=== PATIENT | male | born 2000 | race Two or more races ===

== ENCOUNTER 2025-01-17 11:34 | Emergency (ER) | payer SELFPAY ==
[~2025-01-17] VITALS: Ht 160 cm; Wt 68.0 kg
[2025-01-17 15:33] VITALS: BP 134/75; TEMP 97.8; O2SAT 100
== END 2025-01-17 15:34 | disposition home or self-care (01) ==
LOC: M ED 11:34
DX: M25.532 Pain in left wrist (principal); F17.210 Nicotine dependence, cigarettes, uncomplicated; F12.10 Cannabis abuse, uncomplicated; F10.10 Alcohol abuse, uncomplicated